=== PATIENT | male | born 1950 | race Caucasian/White ===

== ENCOUNTER 2016-07-31 09:37 | Inpatient (IN) | payer OTHER ==
--- NOTE | ~2016-07-31 | CN ---
Consultation Report [facility] [address] [place]. [address] NAME: RANDI PEARL : 46 STATUS : ADM IN PAT#: [id number] AGE: 65 ADM/REG DATE : 07/31/16 MR#: [id number] REPORT SERV DATE: 07/31/16 DICTATED BY: BOBBY SHORT DATE: 07/31/16 REPORT STATUS : Draft TRANSCRIBED BY: MODBrodie DATE: 07/31/16 HEMATOLOGY/ONCOLOGY INITIAL CONSULTATION REPORT DATE OF CONSULTATION: 07/31/2016 REASON FOR CONSULTATION: Regarding febrile neutropenia. CHIEF COMPLAINT: Abdominal pain and diarrhea. HISTORY OF PRESENT ILLNESS: Mr. Pearl is a pleasant 65-year-old white gentleman with past medical history of rheumatoid arthritis and prostate cancer, who presents to the ER for a three-week history of diarrhea and abdominal pain. He has been having approximately four to five loose bowel movements daily and the pain is sharp and most prominent in the left lower quadrant. He noted mild nausea, lightheadedness, and dizziness. He has also been experiencing sweats and fevers with a temperature of 100.7 yesterday. He has had poor appetite during this bout of abdominal pain and diarrhea. He presented to the ER where he had a CT scan of the abdomen and pelvis performed showing distal sigmoid diverticulitis without evidence of abscess or perforation. A CBC was obtained showing a white blood cell count of 3000 with 0% neutrophils, 64% lymphocytes, and 35% monocytes. Lab technicians reviewed the smear and found 4% neutrophils and 68% lymphocytes. His hemoglobin was minimally decreased at 11.3 g/dL and his platelets were normal at 219. Lactate levels were normal at 1.1. Procalcitonin was also negative at 0.1. Mr. Pearl was admitted to the hospital, and Hematology was consulted for his severe neutropenia. Mr. Pearl has been on Xeljanz for his rheumatoid arthritis for the past three years. Dr. Garrison reportedly called Mr. Pearl about four weeks ago instructing him to decrease his dose to once per day. He has been told he has had low counts in the past which were mild. He does not know how low his blood counts were recently causing the Xeljanz to be decreased. He was treated with radiation for his prostate cancer, but his white count was normal at 4.9 with 49% neutrophils back in 12/2015. He has received Lupron and never received chemotherapy for his prostate cancer. He continues to report abdominal pain from his diverticulitis, but has never had early satiety to suggest splenomegaly. He denies weight loss prior to his bout of diarrhea. He denies any palpable lymphadenopathy. He denies any alcohol consumption or known liver disease. PAST MEDICAL HISTORY: 1. Rheumatoid arthritis which has been treated with Xeljanz. 2. Prostate cancer, status post radiation and adjuvant Lupron. 3. Esophageal stricture. 4. Vitamin D deficiency. 5. Borderline diabetes. 6. BPH. 7. Hypertension. Consultation Report [facility] [id number] [place]. [address] NAME: RANDI PEARL : 46 STATUS : ADM IN [facility]#: [id number] AGE: 65 ADM/REG DATE : 07/31/16 MR#: [id number] REPORT SERV DATE: 07/31/16 DICTATED BY: BOBBY SHORT DATE: 07/31/16 REPORT STATUS : Draft TRANSCRIBED BY: FLORINDA DATE: 07/31/16 PAST SURGICAL HISTORY: 1. He had a total left knee performed approximately six weeks ago. 2. Esophageal dilation. MEDICATIONS: Reviewed from [employer]. ALLERGIES: LORTAB. FAMILY HISTORY: Father in early 40s from an [place]. Mother in her late 70s from old age. Brother from a brain tumor. SOCIAL HISTORY: He is . He is a never smoker and does not drink alcohol. Denies illicit drugs. REVIEW OF SYSTEMS: Positive for abdominal pain, diarrhea, nausea, fevers, chills, sweats, poor appetite, weight loss, lightheadedness, and dizziness. Rest of the review of systems was negative in 12 or more systems. PHYSICAL EXAMINATION: VITAL SIGNS: T-max 99.6, T-current 98.9, pulse 90, respirations 20, blood pressure 118/67, and pulse ox of 93% on room air. GENERAL: Pleasant, well-developed, well-nourished white gentleman, who is ill-appearing, but in no acute distress. HEENT: Pupils are equal, round, and reactive to light. Extraocular movements are intact. Conjunctivae and lids normal. Sclerae anicteric. Dry mucous membranes. Tongue and oropharynx normal without exudate, masses, mucositis, or thrush. NECK: Supple. No JVD. Trachea midline. LYMPHATICS: No cervical, supraclavicular, or axillary lymphadenopathy. CHEST: Normal respiratory effort. Clear to auscultation bilaterally. CARDIOVASCULAR: Regular rate and rhythm. No murmurs, rubs, or gallops. ABDOMEN: Soft, tender to palpation in the left lower quadrant. Nondistended. Positive bowel sounds. No rebound or guarding. No palpable hepatosplenomegaly. EXTREMITIES: No clubbing, cyanosis, or edema. NEUROLOGIC: No focal deficits. SKIN: Warm, dry, intact. No rashes or ecchymoses visualized. No palpable nodules. PSYCHIATRIC: Awake, alert, and oriented. Appropriate mood and insight. Verbalized understanding of our conversation. LABORATORY DATA: CBC: White blood cell count 3000, hemoglobin 11.3 g/dL, hematocrit 33.1%, platelets 219,000, 4% neutrophils, 68% lymphocytes, 28% monocytes on the manual differential. CMP: BUN of 17, creatinine of 1.15, CO2 of 21. Total bilirubin of 1.2, albumin 3, total protein 8.6, lactate 1.1, procalcitonin 0.10. ASSESSMENT AND PLAN: Mr. Pearl is a 65-year-old white gentleman who has a history of rheumatoid arthritis and prostate cancer, who presented for diarrhea and abdominal pain and Consultation Report [address] [place]. [address] NAME: RANDI PEARL : 46 STATUS : ADM IN [facility]#: [id number] AGE: 65 ADM/REG DATE : 07/31/16 MR#: [id number] REPORT SERV DATE: 07/31/16 DICTATED BY: BOBBY SHORT DATE: 07/31/16 REPORT STATUS : Draft TRANSCRIBED BY: MODL DATE: 07/31/16 found to have diverticulitis. Blood work also showed febrile neutropenia prompting consultation. 1. Febrile neutropenia: I have reviewed Mr. Pearl' records including notes, labs, and imaging reports. I personally reviewed his CT images which shows sigmoid diverticulitis without abscess or perforation. He does have severe neutropenia on his CBC. I reviewed his peripheral smear which does show a significant decrease in neutrophils with only a few bands identified. He has a relative increase in lymphocytes with a few atypical lymphocytes. No blasts were identified. Red blood cells and platelets appear normal in morphology. I suspect neutropenia is related to the Xeljanz as this can cause severe neutropenia. I agree with discontinuing Xeljanz. Check an LDH, B12, and folate. I will also check a flow cytometry to rule out leukemia or lymphomatous process. Recommend daily CBC, and we will continue to follow. 2. Diverticulitis: CT confirmed diverticulitis. Cultures are pending. I agree with Leandro and will defer management to hospitalist colleagues. BRN/MODL Bobby Short MD / [id number] CC: Niyah Olivier M.D.
--- NOTE | ~2016-07-31 | HP ---
History And Physical [facility] [address] [place]. [address] NAME: RANDI HASTINGS : 46 STATUS : ADM IN [facility]#: [id number] AGE: 65 ADM/REG DATE : 07/31/16 MR#: [id number] REPORT SERV DATE: 07/31/16 DICTATED BY: JAMES SKAGGS DATE: 07/31/16 REPORT STATUS : Draft TRANSCRIBED BY: MODBrodie DATE: 07/31/16 DATE OF ADMISSION: 07/31/2016 CHIEF COMPLAINT: Abdominal pain and dizziness. HISTORY OF PRESENT ILLNESS: The patient is a 65-year-old male. He has a past medical history significant for one rheumatoid arthritis. He has been on current medications approximately for three years, diagnosed approximately fourteen years ago. Back Order Clerk is Dr. Garrison. He has a history of prostate cancer, diagnosed approximately two years ago, status post radiation, no surgery. He took his last Lupron shot recently. He also has a history of borderline diabetes, hypertension, and BPH. He presents with a several week history of abdominal pain, low-grade fevers, nausea, and diarrhea. He states, he had similar symptoms four to five years ago, which were diverticulitis and resolved. He has been experiencing pain, [id number] left-sided. He has been experiencing diarrhea, worse over the past week, averaging three to four bowel movements per day. He has had nausea without emesis. He has had decreased p.o. intake and he has had low-grade fevers. He went to see his PCP several days ago. He states an outpatient echocardiogram was ordered due to his low blood pressure. He states, there was no specific treatment for diarrhea, fever, and abdominal pain. He apparently has had an orthostasis problem for four to five years; however, it has been worse with this particular illness. He presented to the emergency department. CT scan showed an uncomplicated diverticulitis, but subsequently also noted severe neutropenia. The patient states, he has not been advised in the past. He is neutropenic although. He did receive a call from his draw hand approximately two weeks ago to decrease his dose but he is not sure why. He has been admitted for above treatment. PAST MEDICAL HISTORY: As covered above. PAST SURGICAL HISTORY: He had a total left knee done six weeks ago, which he is recovering from. He also had his esophagus stretched. CURRENT MEDICATIONS: Vasotec 20 one per day, vitamin D 50,000, monthly Glucophage 500 b.i.d., Afrin nasal spray, prednisone 5, Flomax 0.4, Xeljanz 5 mg b.i.d., he may be taking once a day at this time. ALLERGIES: TO HYDROCODONE. FAMILY HISTORY: Father in his early 40s from an [place]. Mother in her late 70s of old age. SOCIAL HISTORY: Nondrinker, nonsmoker. REVIEW OF SYSTEMS: HEENT: Positive for the dizziness. CARDIOVASCULAR: No chest pain, palpitations. PULMONARY: No shortness of breath. History And Physical [address] [address] NAME: RANDI HASTINGS : 46 STATUS : ADM IN [facility]#: [id number] AGE: 65 ADM/REG DATE : 07/31/16 MR#: [id number] REPORT SERV DATE: 07/31/16 DICTATED BY: JAMES SKAGGS DATE: 07/31/16 REPORT STATUS : Draft TRANSCRIBED BY: FLORINDA DATE: 07/31/16 GI: As covered in HPI. : He has BPH symptoms, otherwise unremarkable. NEUROMUSCULOSKELETAL: He complains of the dizziness and just generalized weakness. Otherwise, 14-point review of systems is negative. PHYSICAL EXAMINATION: VITAL SIGNS: Presenting BP was 118/75, temp 98.8, pulse 105, respirations 20, sat 95%. He was reported to be orthostatic after 1L IV fluid in the emergency department, although I do not see the numbers. GENERAL: He is awake, alert, appropriate, in no acute distress. HEENT: Normocephalic, atraumatic. Sclerae nonicteric. NECK: Supple. HEART: Regular rate and rhythm. LUNGS: Clear to auscultation without rhonchi, rales, or wheezes. ABDOMEN: He has no distention and some mild tenderness to palpation to the left positive bowel sounds. EXTREMITIES: No clubbing, cyanosis, or edema. NEUROLOGICAL: Nonfocal. LABORATORY DATA: White count is 3, H and H are 11.3 and 33.1 with platelets of 219. His differential however was 4 segs, 68 lymphocytes, 28 monos, neutrophils were reported as zero. Sodium 133, potassium 3.8, chloride 98, CO2 of 21, BUN and creatinine are 17 and 1.15 with a glucose of 118, lipase 276. Lactate 1.1. CT showed sigmoid diverticulitis without abscess. There is a pathology report in 01/10, which was a peripheral smear, this is not available at this time. ASSESSMENT: 1. Diverticulitis, on immunosuppressants. 2. Neutropenia. 3. Orthostasis. 4. Chronic medical problems as listed above. PLAN: 1. The patient has been admitted. He has already received Levaquin and Flagyl. We will continue. 2. With his complaint of significant diarrhea and neutropenia, stool studies will be done. 3. We will hold his Xeljanz. 4. We will hold his antihypertensives. 5. IV fluids with consideration of stress dose steroids if his blood pressures do not improve. He is on a relatively low-dose prednisone with acute diverticulitis and like to avoid steroids, but if necessary we will give. 6. Monitor his blood sugars. 7. He may need Oncology consultation. 8. Neutropenia precautions. 9. His pathology report from 12/2015, white count at that time was 2.4 and his neutrophils were 24.2%, showed microcytosis, marked neutropenia, immature myeloid cells, or hairy History And Physical [address] [address] NAME: RANDI HASTINGS : 46 STATUS : ADM IN [facility]#: [id number] AGE: 65 ADM/REG DATE : 07/31/16 MR#: [id number] REPORT SERV DATE: 07/31/16 DICTATED BY: JAMES SKAGGS DATE: 07/31/16 REPORT STATUS : Draft TRANSCRIBED BY: MODL DATE: 07/31/16 cells or significant large granular lymphocytes are not identified to explain the neutropenia. TLF/MODL James Skaggs M.D. / [id number] CC: Niyah Olivier
--- NOTE | ~2016-07-31 | DS ---
Discharge Summary [facility] [address] [place]. [address] NAME: RANDI HASTINGS : 46 STATUS : DIS IN PAT#: [id number] AGE: 65 ADM/REG DATE : 07/31/16 MR#: [id number] REPORT SERV DATE: 08/05/16 DICTATED BY: JAYNE PATEL DATE: 08/04/16 REPORT STATUS : Draft TRANSCRIBED BY: MODL DATE: 08/04/16 ADMISSION DATE: 07/31/2016 DISCHARGE DATE: 08/04/2016 HOSPITAL COURSE: A 65-year-old male with known history of obesity rheumatoid arthritis, previously on Xeljanz biologic. Sees Dr. Garrison for his a rheumatology needs. Known history of prostate cancer, Lupron shot recently, diagnosed 2 years ago, status post radiation but no surgery. History of prediabetes, hypertension, and BPH. Came in with low- grade fevers, nausea, vomiting, and abdominal pain with diarrhea. He stated he had similar symptoms 4 or 5 years ago; this is now the second bout of diverticulitis. CT showed uncomplicated diverticulitis, distal sigmoid. The patient was immunocompromised with leukopenia with consideration for possible neutropenia. Xeljanz biologic was held. The patient continued on his home prednisone. The patient was seen by Hematology regarding this neutropenia. White count initially was 3000, 0% neutrophils, 64% lymphocytes, and 35% monocytes. technical support professional reviewed the smear, found 4% neutrophils and 68% lymphocytes. Hemoglobin was mildly decreased at 11.3. Does have severe neutropenia. Does have significant decrease, only a few bands identified. Relative increase in lymphocytes, a few atypical lymphocytes. No blasts were identified. Neutropenia may be related to Xeljanz that can cause severe neutropenia, discontinued Xeljanz. Flow cytometry to rule out leukemia, lymphomatous process, still pending unfortunately. The patient is amenable for discharge. Oncology is okay with discharge. Close followup. Stool cultures are all negative including C. diff. White count has been stable at 1.8 thousand from 3.0 initially. Platelets are stable at 177,000. Hemoglobin 9.7 from 9.8. The patient is amenable for discharge. Follow up with Dr. Short in ten days. Get normal dose of Levaquin and Flagyl; Levaquin 750 p.o. daily and Flagyl 500 p.o. t.i.d. Additional discharge medications, sodium bicarb 1300 mg p.o. b.i.d. for three more days, prednisone 5 mg p.o. daily, enalapril half dose of home dose, so now 10 mg p.o. daily, metformin as well, and multivitamin tablet p.o. daily. Follow up with PCP in 2 weeks. Follow up with Oncology in 10 days. Follow up with Rheumatology in 3 to 4 weeks. Rheumatology to 4 weeks. Consider possible other disease-modifying agent. Defer regarding methotrexate; however, the patient needs to no longer be leukopenic if that were to occur. Consider possible bone marrow biopsy as an outpatient per Hematology if leukopenia and neutropenia persists at that time. DISCHARGE DIAGNOSES: Distal sigmoid diverticulitis and positive orthostasis initially. Discharge Summary [address] [place]. [address] NAME: RANDI HASTINGS : 46 STATUS : DIS IN PAT#: [id number] AGE: 65 ADM/REG DATE : 07/31/16 MR#: [id number] REPORT SERV DATE: 08/05/16 DICTATED BY: JAYNE PATEL DATE: 08/04/16 REPORT STATUS : Draft TRANSCRIBED BY: FLORINDA DATE: 08/04/16 As a result, I will actually not continue his home enalapril. He has been fairly normotensive here without it, possibly has had some weight loss with his diverticulitis, would defer to his PCP regarding this. His orthostasis has improved though. All questions were answered, it took well over 30 minutes to do. WST/CHELOL Jayne Patel DO / [id number] CC: DO Christal Nunez M.D.
[2016-07-31 09:21] LABS: BASOPHILS 0.3 %; BASOPHILS ABSOLUTE 0.01 10/3/uL (0.0-0.16); EOSINOPHILS 0 %; HEMATOCRIT 33.1 % (40.0-51.0); HEMOGLOBIN 11.3 g/dL (13.6-17.8); LYMPHOCYTES 64.2 %; LYMPHOCYTES ABSOLUTE 1.92 10/3/uL (0.67-4.30); MEAN CORPUS HGB CONC 34.1 g/dL (32.0-36.0); MEAN PLATELET VOLUME 8.9 fL (9.2-13.0); MONOCYTES 35.5 %; MONOCYTES ABSOLUTE 1.06 10/3/uL (0.21-1.20); NEUTROPHILS 0 %; PLATELET COUNT 219 10/3/uL (150-400); RBC DISTRIBUTION WIDTH 14.9 % (12.0-16.0); RED CELL COUNT 4.55 10/6/uL (4.7-6.1)
[2016-07-31 09:24] LABS: MANUAL DIFF NO %; MEAN CORPUSCULAR HEMOGLOB 24.8 pg (26.0-34.0); MEAN CORPUSCULAR VOLUME 72.7 fL (80-100)
[2016-07-31 09:37] LABS: A/G RATIO 0.5 (0.7-1.9); ALKALINE PHOSPHATASE 74 U/L (45-117); BUN (BLOOD UREA NITROGEN) 17 MG/DL (6-23); CALCIUM, SERUM 8.7 MG/DL (8.5-10.4); CHLORIDE, SERUM 98 MMOL/L (96-112); CO2 (CARBON DIOXIDE) 21 MMOL/L (24-34); CREATININE 1.15 MG/DL (0.70-1.30); GFR AFRICAN AMERICAN 76 ML/MIN (>=60); GFR NON AFRICAN AMERICAN 65 ML/MIN (>=60); GLOBULIN 5.6 G/DL (2.5-4.1); GLUCOSE, SERUM 118 MG/DL (60-99); POTASSIUM, SERUM 3.8 MMOL/L (3.5-5.3); SGOT(AST) 23 U/L (5-40); SGPT(ALT) 15 U/L (5-65); SODIUM, SERUM 133 MMOL/L (135-148); TOTAL BILIRUBIN 1.2 MG/DL (0-1.2); TOTAL PROTEIN 8.6 G/DL (6.0-8.5)
[~2016-07-31 09:37] MED LIST: ENBREL25 MG SC; ENBREL50 MG/M1 SC; FOLIC PO; LORT7 PO; NEXIUM40 PO; P5 PO; T PO; TREXALL5 MG PO; VASOTEC10 PO
[2016-07-31 09:40] LABS: LACTATE 1.1 MMOL/L (0.3-2.4)
[2016-07-31] MEDS ORDERED: GLUCPH PO (09:56)
[2016-07-31] MEDS ORDERED: VASOTEC20 MG PO (09:56)
[2016-07-31] MEDS ORDERED: FLOMAX4 PO (09:56)
[2016-07-31] MEDS ORDERED: P5 PO (09:57)
[2016-07-31] MEDS ORDERED: XELJANZ5 MG PO (09:57)
[2016-07-31] MEDS ORDERED: VITD PO (09:57)
[2016-07-31] MEDS ORDERED: AFRIN15 NAS (09:57)
[2016-07-31 09:59] LABS: ER DIFF TAT 0 Hrs 44 Mins; LYMPHOCYTES 68 %; LYMPHOCYTES ABSOLUTE (CALC) 2.04 10/3/uL (0.67-4.30); MONOCYTES 28 %; MONOCYTES ABSOLUTE (CALC) 0.84 10/3/uL (0.21-1.20); NEUTROPHILS ABSOLUTE (CALC) 0.12 10/3/uL (2.02-8.40); SEGMENTED NEUTROPHIL (0) 4 %; TOTAL NUCLEATED CELLS 100
[2016-07-31 10:04] LABS: MICROCYTES 1+ (5-10/OIF) (0-5/OIF); PLATELET ESTIMATE ADQ (ADEQUATE)
[2016-07-31 10:06] LABS: ATYPICAL LYMPH OCC (0-2%) (0-5%)
[2016-07-31 18:12] LABS: ASCORBIC ACID (UR NOT ORDER) NEG (NEG); BILIRUBIN, URINE NEGATIVE (NEG); KETONE, URINE NEGATIVE (NEG); LEUKOCYTE ESTERASE(NOT OR NEG (NEG); WBC (NOT ORDERED) (RFLEX) 2 (0-5)
[2016-08-01 07:56] LABS: HEMOGLOBIN 9.8 g/dL (13.6-17.8); MEAN CORPUS HGB CONC 33.2 g/dL (32.0-36.0); MEAN CORPUSCULAR HEMOGLOB 24.5 pg (26.0-34.0); MEAN CORPUSCULAR VOLUME 73.8 fL (80-100); MEAN PLATELET VOLUME 8.7 fL (9.2-13.0); PLATELET COUNT 155 10/3/uL (150-400); RBC DISTRIBUTION WIDTH 14.8 % (12.0-16.0); WHITE BLOOD CELLS 2.9 10/3/uL (4.5-10.5)
[2016-08-01 07:58] LABS: HEMATOCRIT 29.5 % (40.0-51.0)
[2016-08-01 07:59] LABS: MANUAL DIFF YES %
[2016-08-01 08:24] LABS: BAND NEUTROPHILS 1 %; LYMPHOCYTES 76 %; MONOCYTES 22 %; MONOCYTES ABSOLUTE (CALC) 0.64 10/3/uL (0.21-1.20); NEUTROPHILS ABSOLUTE (CALC) 0.06 10/3/uL (2.02-8.40); SEGMENTED NEUTROPHIL (0) 1 %; TOTAL NUCLEATED CELLS 100
[2016-08-01 08:25] LABS: HYPOCHROMIA 1+ (3-10/OIF) (0-2/OIF); MICROCYTES 1+ (5-10/OIF) (0-5/OIF); PLATELET ESTIMATE ADQ (ADEQUATE)
[2016-08-01 08:33] LABS: CALCIUM, SERUM 7.8 MG/DL (8.5-10.4); CHLORIDE, SERUM 101 MMOL/L (96-112); CO2 (CARBON DIOXIDE) 22 MMOL/L (24-34); CREATININE 1.14 MG/DL (0.70-1.30); GFR AFRICAN AMERICAN 77 ML/MIN (>=60); GFR NON AFRICAN AMERICAN 66 ML/MIN (>=60); GLUCOSE, SERUM 102 MG/DL (60-99); POTASSIUM, SERUM 3.6 MMOL/L (3.5-5.3); SODIUM, SERUM 135 MMOL/L (135-148)
[2016-08-01 08:34] LABS: BUN (BLOOD UREA NITROGEN) 11 MG/DL (6-23); FOLATE 16.5 NG/ML (>5.2)
[2016-08-02 06:09] LABS: HEMATOCRIT 30.4 % (40.0-51.0); HEMOGLOBIN 10.1 g/dL (13.6-17.8); MEAN CORPUS HGB CONC 33.2 g/dL (32.0-36.0); MEAN CORPUSCULAR HEMOGLOB 24.3 pg (26.0-34.0); MEAN CORPUSCULAR VOLUME 73.3 fL (80-100); MEAN PLATELET VOLUME 9.3 fL (9.2-13.0); PLATELET COUNT 156 10/3/uL (150-400); RBC DISTRIBUTION WIDTH 14.7 % (12.0-16.0); RED CELL COUNT 4.15 10/6/uL (4.7-6.1)
[2016-08-02 06:16] LABS: WHITE BLOOD CELLS 1.9 10/3/uL (4.5-10.5)
[2016-08-02 06:17] LABS: MANUAL DIFF YES %
[2016-08-02 06:20] LABS: BUN (BLOOD UREA NITROGEN) 10 MG/DL (6-23); CALCIUM, SERUM 8.1 MG/DL (8.5-10.4); CHLORIDE, SERUM 107 MMOL/L (96-112); CO2 (CARBON DIOXIDE) 21 MMOL/L (24-34); GFR AFRICAN AMERICAN 102 ML/MIN (>=60); GFR NON AFRICAN AMERICAN 88 ML/MIN (>=60); PHOSPHORUS, SERUM 2.1 MG/DL (2.5-4.5); POTASSIUM, SERUM 3.7 MMOL/L (3.5-5.3); SODIUM, SERUM 139 MMOL/L (135-148)
[2016-08-02 06:23] LABS: GLUCOSE, SERUM 130 MG/DL (60-99)
[2016-08-02 06:52] LABS: LYMPHOCYTES 69 %; LYMPHOCYTES ABSOLUTE (CALC) 1.32 10/3/uL (0.67-4.30); MONOCYTES 31 %; MONOCYTES ABSOLUTE (CALC) 0.58 10/3/uL (0.21-1.20); PLATELET ESTIMATE ADQ (ADEQUATE); RBC MORPHOLOGY NORM (NORMAL); TOTAL NUCLEATED CELLS 75
[2016-08-03 06:50] LABS: HEMOGLOBIN 9.7 g/dL (13.6-17.8); MEAN CORPUS HGB CONC 33.4 g/dL (32.0-36.0); MEAN CORPUSCULAR HEMOGLOB 24.3 pg (26.0-34.0); MEAN CORPUSCULAR VOLUME 72.7 fL (80-100); MEAN PLATELET VOLUME 9.1 fL (9.2-13.0); PLATELET COUNT 162 10/3/uL (150-400); RED CELL COUNT 3.99 10/6/uL (4.7-6.1)
[2016-08-03 06:51] LABS: MANUAL DIFF YES %; WHITE BLOOD CELLS 1.8 10/3/uL (4.5-10.5)
[2016-08-03 06:58] LABS: CALCIUM, SERUM 7.6 MG/DL (8.5-10.4); CHLORIDE, SERUM 104 MMOL/L (96-112); CO2 (CARBON DIOXIDE) 21 MMOL/L (24-34); CREATININE 0.82 MG/DL (0.70-1.30); GFR AFRICAN AMERICAN 106 ML/MIN (>=60); GFR NON AFRICAN AMERICAN 92 ML/MIN (>=60); GLUCOSE, SERUM 127 MG/DL (60-99); POTASSIUM, SERUM 3.4 MMOL/L (3.5-5.3); SODIUM, SERUM 136 MMOL/L (135-148)
[2016-08-03 06:59] LABS: BUN (BLOOD UREA NITROGEN) 6 MG/DL (6-23)
[2016-08-03 07:41] LABS: EOSINOPHILS 2 %; EOSINOPHILS ABSOLUTE (CALC) 0.04 10/3/uL (0.0-0.53); LYMPHOCYTES 76 %; LYMPHOCYTES ABSOLUTE (CALC) 1.36 10/3/uL (0.67-4.30); MONOCYTES 16 %; MONOCYTES ABSOLUTE (CALC) 0.28 10/3/uL (0.21-1.20); NEUTROPHILS ABSOLUTE (CALC) 0.12 10/3/uL (2.02-8.40); PLATELET ESTIMATE ADQ (ADEQUATE); RBC MORPHOLOGY NORM (NORMAL); SEGMENTED NEUTROPHIL (0) 7 %; TOTAL NUCLEATED CELLS 45
[2016-08-04 05:39] LABS: HEMATOCRIT 29.3 % (40.0-51.0); HEMOGLOBIN 9.7 g/dL (13.6-17.8); MEAN CORPUS HGB CONC 33.1 g/dL (32.0-36.0); MEAN CORPUSCULAR HEMOGLOB 24.3 pg (26.0-34.0); MEAN CORPUSCULAR VOLUME 73.4 fL (80-100); MEAN PLATELET VOLUME 10.2 fL (9.2-13.0); PLATELET COUNT 177 10/3/uL (150-400); RBC DISTRIBUTION WIDTH 15.1 % (12.0-16.0); RED CELL COUNT 3.99 10/6/uL (4.7-6.1)
[2016-08-04 05:42] LABS: MANUAL DIFF YES %; WHITE BLOOD CELLS 1.8 10/3/uL (4.5-10.5)
[2016-08-04 07:44] LABS: LYMPHOCYTES 76 %; LYMPHOCYTES ABSOLUTE (CALC) 1.37 10/3/uL (0.67-4.30); MONOCYTES 24 %; MONOCYTES ABSOLUTE (CALC) 0.43 10/3/uL (0.21-1.20); TOTAL NUCLEATED CELLS 25
[2016-08-04 07:45] LABS: HYPOCHROMIA 1+ (3-10/OIF) (0-2/OIF); MICROCYTES 1+ (5-10/OIF) (0-5/OIF); PLATELET ESTIMATE ADQ (ADEQUATE)
[2016-08-04] MEDS ORDERED: SODBICAR10 PO (13:55)
[2016-08-04] MEDS ORDERED: LEVAQUIN750 MG PO (13:57)
[2016-08-04] MEDS ORDERED: FLAG500TAB PO (13:58)
[2016-08-04] MEDS ORDERED: MVI PO (14:00)
[2016-08-18] MEDS ORDERED: VITC500 PO (16:17)
[2016-08-18] MEDS ORDERED: XELJANZ5 MG PO (16:22)
[2016-11-12] MEDS ORDERED: FLOMAX4 PO (13:23)
[2016-11-12] MEDS ORDERED: P5 PO (13:23)
[2016-11-12] MEDS ORDERED: NORCO1 TA2 PO (13:24)
[2016-11-12] MEDS ORDERED: IRON 65 MG PO (13:25)
[2016-11-15] MEDS ORDERED: LEVAQUIN750 MG PO (08:41)
[2016-12-23] MEDS ORDERED: MULTIVITAMI1 PO (08:42)
== END 2016-08-04 15:34 | disposition home or self-care (01) | DRG 809 ==
LOC: ER 09:37 → 6NO 12:38
PROVIDERS: Hospitalist; Internal Medicine; Internal Medicine Hematology & Oncology
DX: D70.2 Other drug-induced agranulocytosis (principal); K57.32 Diverticulitis of large intestine without perforation or abscess without bleeding; I10 Essential (primary) hypertension; M06.9 Rheumatoid arthritis, unspecified; E55.9 Vitamin D deficiency, unspecified; D64.9 Anemia, unspecified; R73.03 Prediabetes; N40.0 Benign prostatic hyperplasia without lower urinary tract symptoms; T50.995A Adverse effect of other drugs, medicaments and biological substances, initial encounter; Z85.46 Personal history of malignant neoplasm of prostate; Z92.3 Personal history of irradiation; Z96.652 Presence of left artificial knee joint; Z79.899 Other long term (current) drug therapy
CPT/HCPCS: 74176; 80048; 80053; 81001; 82533; 82607; 82746; 82962; 83036; 83605; 83615; 83690; 83735; 84100; 84132; 84145; 84999; 85025; 87040; 87045; 87046; 87046-59; 87328; 87329; 87493; 87493-59; 87641; 87899; 87899-59; 89055; 96365; 96368; 96375; 99285; A9270-GY; J1956; J2405; J2543

== ENCOUNTER 2016-08-27 07:21 | Day surgery (SDC) | payer OTHER ==
[~2016-08-27 07:21] MED LIST changes: +AFRIN15 NAS; +FLAG500TAB PO; +FLOMAX4 PO; +GLUCPH PO; +LEVAQUIN750 MG PO; +MVI PO; +SODBICAR10 PO; +VASOTEC20 MG PO; +VITC500 PO; +VITD PO; +XELJANZ5 MG PO
[2016-08-27 07:56] LABS: MEAN CORPUS HGB CONC 32.2 g/dL (32.0-36.0); MEAN CORPUSCULAR HEMOGLOB 23.4 pg (26.0-34.0); MEAN CORPUSCULAR VOLUME 72.8 fL (80-100); MEAN PLATELET VOLUME 8.8 fL (9.2-13.0); PLATELET COUNT 154 10/3/uL (150-400); RBC DISTRIBUTION WIDTH 15.6 % (12.0-16.0); RETICULOCYTE COUNT 1.6 % (0.5-2.5); RETICULOCYTE COUNT ABSOLUTE 78.7 10/3/uL (20.2-119.8)
[2016-08-27 07:57] LABS: HEMOGLOBIN 11.9 g/dL (13.6-17.8); MANUAL DIFF YES %; RED CELL COUNT 5.08 10/6/uL (4.7-6.1); WHITE BLOOD CELLS 2.3 10/3/uL (4.5-10.5)
[2016-08-27 08:24] LABS: EOSINOPHILS 9 %; EOSINOPHILS ABSOLUTE (CALC) 0.21 10/3/uL (0.0-0.53); LYMPHOCYTES 78 %; LYMPHOCYTES ABSOLUTE (CALC) 1.79 10/3/uL (0.67-4.30); MONOCYTES 9 %; MONOCYTES ABSOLUTE (CALC) 0.21 10/3/uL (0.21-1.20); NEUTROPHILS ABSOLUTE (CALC) 0.09 10/3/uL (2.02-8.40); SEGMENTED NEUTROPHIL (0) 4 %; TOTAL NUCLEATED CELLS 100
[2016-08-27 08:25] LABS: HYPOCHROMIA 1+ (3-10/OIF) (0-2/OIF); PLATELET ESTIMATE ADQ (ADEQUATE)
[2016-08-27 08:26] LABS: OVALOCYTES 1+ (3-10/OIF) (0-2/OIF)
[2016-11-12] MEDS ORDERED: FLOMAX4 PO (13:23)
[2016-11-12] MEDS ORDERED: P5 PO (13:23)
[2016-11-12] MEDS ORDERED: NORCO1 TA2 PO (13:24)
[2016-11-12] MEDS ORDERED: IRON 65 MG PO (13:25)
[2016-11-15] MEDS ORDERED: LEVAQUIN750 MG PO (08:41)
[2016-12-23] MEDS ORDERED: MULTIVITAMI1 PO (08:42)
== END 2016-08-27 12:06 | disposition home or self-care (01) ==
LOC: SDC 07:21
PROVIDERS: Anesthesiology; Pathology Cytopathology
PROC: 07DR3ZX Extraction of Iliac Bone Marrow, Percutaneous Approach, Diagnostic (ICD-10-PCS; principal; 2016-08-27 10:00)
DX: D70.9 Neutropenia, unspecified (principal); D50.9 Iron deficiency anemia, unspecified; M06.9 Rheumatoid arthritis, unspecified; E11.9 Type 2 diabetes mellitus without complications; N40.0 Benign prostatic hyperplasia without lower urinary tract symptoms; E55.9 Vitamin D deficiency, unspecified; K21.9 Gastro-esophageal reflux disease without esophagitis; Z85.46 Personal history of malignant neoplasm of prostate; Z88.5 Allergy status to narcotic agent
CPT/HCPCS: 82962; 85025; 85045; 87015; 87070; 87075; 87102; 87116; 88305; 88311; 88313; 88341; 88342